=== PATIENT | male | born 1985 | race Caucasian/White ===

== ENCOUNTER 2017-04-06 08:11 | Emergency (ER) | payer MEDICAID, OTHER ==
[2017-04-06] MEDS ORDERED: NS 1,000 ML IV ONE ×2 (08:42→08:52)
[2017-04-06 08:46] LABS: % IMMATURE GRANULYOCYTES 0.4 % (0.0-1.1); ABSOLUTE IMMATURE GRANULOCYTES 0.03 10^3/uL (0.00-0.10); ADD DIFF? NO; ADD MORPH? NO; ADD SCAN? NO; ATYPICAL LYMPHOCYTE FLAG 10 (0-99); FRAGMENT RBC FLAG 0 (0-99); HEMATOCRIT 45.3 % (40.0-51.0); LEFT SHIFT FLG 0 (0-99); LIPEMIA HEMOLYSIS FLAG 80 (0-99); MEAN CELL HEMOGLOBIN CONCENTR. 33.1 g/dL (32.4-36.7); MEAN CELL VOLUME 87.6 fL (81.5-99.8); MEAN PLATELET VOLUME 10.6 fL (8.7-11.7); PLATELET CLUMPS FLAG 0 (0-99); PLATELET COUNT 240 10^3/uL (150-400); RED BLOOD CELL COUNT 5.17 10^6/uL (4.40-6.38); RED CELL DISTRIBUTION WIDTH 14.1 % (11.5-15.2)
--- NOTE | 2017-04-06 08:47 | EDPHY ---
H & P Time Seen by Provider: 04/06/17 08:46 HPI/ROS: Chief complaint. Flank pain HPI. 31-year-old male presents emergency department with left flank pain. He awoke about 530 this morning. On going to the bathroom he noticed decreased urination and hard to urinate. He had increased left flank pain after urination. The discomfort waxes and wanes and is not worse with movement or position. Seems to be somewhat better with pacing. Pain is in his left flank radiating to the left groin and left testicle. No similar symptoms previously. No fever, chest discomfort, trouble breathing. ROS Constitutional. no fever/chills, no weakness Eyes. no problems with vision ENT. no sore throat, no nasal drainage Cardiovascular. no chest pain Respiratory. no shortness of breath, no cough Abdominal. Left flank pain with nausea . Decreased urination MS. no calf pain/swelling, no neck/back pain, no joint pain Skin. no rash Lymph. no swollen glands Neuro. no headache, no dizziness, no difficulty walking or with speech Past Medical/Surgical History: Past medical history is significant for hypothyroid, depression, sleep apnea, diverticulitis Social History: , nonsmoker, no alcohol Smoking Status: Never smoked Physical Exam: General Appearance: Alert well-developed male moderate distress vital signs significant for initial blood pressure 199/107 Eyes: Pupils equal and round no pallor or injection. ENT, Mouth: Mucous membranes are moist. Respiratory: There are no retractions, lungs are clear to auscultation. Cardiovascular: Regular rate and rhythm. Gastrointestinal: Abdomen is soft and nontender, no masses, bowel sounds normal. Patient shows me tenderness in the left flank and left lower quadrant of abdomen but not tender to palpation Neurological: Awake and alert, sensory and motor exams grossly normal. Skin: Warm and dry, no rashes. Musculoskeletal: Neck is supple nontender. Extremities symmetrical, full range of motion. Psychiatric: Patient is oriented X 3, there is no agitation. Constitutional: Initial Vital Signs Temperature (C) 36.5 C 04/06/17 08:14 Heart Rate 84 04/06/17 08:14 Respiratory Rate 18 04/06/17 08:14 Blood Pressure 199/107 H 04/06/17 08:14 O2 Sat (%) 95 04/06/17 08:14 O2 Delivery Mode Room Air Allergies/Adverse Reactions: No Known Allergies Allergy (Unverified 04/06/17 08:14) Home Medications: Medication Instructions Recorded Cephalexin [Keflex (*)] 500 mg PO TID #21 cap 04/06/17 Escitalopram Oxalate 04/06/17 Levothyroxine 04/06/17 Promethazine HCl [Phenergan 25mg 25 mg PO Q4-6PRN PRN #10 tab 04/06/17 (*)] oxyCODONE/APAP 5/325 [Percocet 1 tab PO Q4-6PRN PRN #14 tab 04/06/17 5/325] Medical Decision Making - Diagnostics Imaging Results: Imaging Impressions Abdomen/Pelvis CT 04/06/17 08:52 Impression: 1. Bilateral nephrolithiasis, with [id number] left hydronephrosis secondary to a 2 mm calculus at the left ureterovesical junction. 2. Hepatic steatosis. 3. Query cryptorchid left testis. Clinical correlation is advised. 4. Grade 1 spondylolisthesis at L5-S1 with degenerative disk disease and an accompanying spondylolysis. Attention: This CT examination is specifically designed to evaluate patients who are clinically suspected of having acute obstructive uropathy. This examination does not use radiographic contrast, and as such, provides only a limited evaluation of the abdomen, pelvis, and retroperitoneum. If there is further clinical suspicion for pathological conditions other than obstructive uropathy, a complete CT evaluation of the abdomen and pelvis utilizing intravenous, oral, and rectal contrast should be considered. Findings were discussed with LANDON ARROYO MD at 9:32 am, on 04/06/2017. CT abdomen pelvis without IV contrast reviewed by me and discussed with Dr. Harrington shows a 2 mm stone at the left UVJ. Moderate proximal hydronephrosis. Questionable crypto or kid left testis as it appears to be high -riding on CT. There is also a grade 1 spondylolisthesis. Procedures: IV normal saline. Dilaudid for pain, Toradol for pain. Zofran for nausea ED Course/Re-evaluation: Re-evaluation 9:20 a.m.--pain-free. Patient and I discussed imaging study results, treatment plan including criteria for return importance of follow-up and further evaluation. We also discussed non descended testicle that should be re-evaluated by Urology. He expresses understanding and agreement Differential Diagnosis: I considered kidney stone, diverticulitis, pyelonephritis and urinary tract infection - Data Points Laboratory Results: Laboratory Results 04/06/17 08:32 04/06/17 08:32 04/06/17 04/06/17 04/06/17 08:32 08:32 08:32 WBC 8.16 10^3/uL 10^3/uL (3.80-9.50) RBC 5.17 10^6/uL 10^6/uL (4.40-6.38) Hgb 15.0 g/dL g/dL (13.7-17.5) Hct 45.3 % % (40.0-51.0) MCV 87.6 fL fL (81.5-99.8) MCH 29.0 pg pg (27.9-34.1) MCHC 33.1 g/dL g/dL (32.4-36.7) RDW 14.1 % % (11.5-15.2) Plt Count 240 10^3/uL 10^3/uL (150-400) MPV 10.6 fL fL (8.7-11.7) Neut % (Auto) 39.8 % % (39.3-74.2) Lymph % (Auto) 47.9 % H % (15.0-45.0) [place] % (Auto) 8.0 % % (4.5-13.0) Eos % (Auto) 3.3 % % (0.6-7.6) Baso % (Auto) 0.6 % % (0.3-1.7) Nucleat RBC Rel Count 0.0 % % (0.0-0.2) Absolute Neuts (auto) 3.25 10^3/uL 10^3/uL (1.70-6.50) Absolute Lymphs (auto) 3.91 10^3/uL H 10^3/uL (1.00-3.00) Absolute Monos (auto) 0.65 10^3/uL 10^3/uL (0.30-0.80) Absolute Eos (auto) 0.27 10^3/uL 10^3/uL (0.03-0.40) Absolute Basos (auto) 0.05 10^3/uL 10^3/uL (0.02-0.10) Absolute Nucleated RBC 0.00 10^3/uL 10^3/uL (0-0.01) Immature Gran % 0.4 % % (0.0-1.1) Immature Gran # 0.03 10^3/uL 10^3/uL (0.00-0.10) Sodium 140 mEq/L mEq/L (134-144) Potassium 4.2 mEq/L mEq/L (3.5-5.2) Chloride 105 mEq/L mEq/L (97-110) Carbon Dioxide 21 mEq/l L mEq/l (22-31) Anion Gap 14 mEq/L mEq/L (8-16) BUN 14 mg/dL mg/dL (7-23) Creatinine 1.0 mg/dL mg/dL (0.7-1.3) Estimated GFR > 60 Glucose 101 mg/dL H mg/dL (70-100) Calcium 10.1 mg/dL mg/dL (8.5-10.4) Total Bilirubin 0.6 mg/dL mg/dL (0.1-1.4) AST 41 IU/L IU/L (17-59) ALT 61 IU/L IU/L (21-72) Alkaline Phosphatase 81 IU/L IU/L (38-126) Total Protein 7.6 g/dL g/dL (6.3-8.2) Albumin 4.7 g/dL g/dL (3.5-5.0) Urine Color YELLOW Urine Appearance CLEAR Urine pH 5.0 (5.0-7.5) Ur Specific [place] 1.015 (1.002-1.030) Urine Protein NEGATIVE (NEGATIVE) Urine Ketones NEGATIVE (NEGATIVE) Urine Blood 1+ H (NEGATIVE) Urine Nitrate NEGATIVE (NEGATIVE) Urine Bilirubin NEGATIVE (NEGATIVE) Urine Urobilinogen NEGATIVE EU EU (0.2-1.0) Ur Leukocyte Esterase NEGATIVE (NEGATIVE) Urine RBC 5-10 /hpf H /hpf (0-3) Urine WBC 5-10 /hpf H /hpf (0-3) Ur Epithelial Cells NONE SEEN /lpf /lpf (NONE-1+) Urine Mucus TRACE /lpf /lpf (NONE-1+) Ur Culture Indicated? INDICATED H (NI) Urine Glucose NEGATIVE (NEGATIVE) Medications Given: Discontinued Medications Hydromorphone HCl (Dilaudid) 1 mg IVP EDNOW ONE Stop: 04/06/17 08:53 Last Admin: 04/06/17 09:15 Dose: 1 mg Sodium Chloride (Ns) 1,000 mls @ 0 mls/hr IV EDNOW ONE; Wide Open PRN Reason: Protocol Stop: 04/06/17 08:43 Last Admin: 04/06/17 08:43 Dose: 1,000 mls Sodium Chloride (Ns) 1,000 mls @ 0 mls/hr IV ONCE ONE; Wide Open PRN Reason: Protocol Stop: 04/06/17 08:53 Last Admin: 04/06/17 09:15 Dose: 1,000 mls Ketorolac Tromethamine (Toradol) 30 mg IVP EDNOW ONE Stop: 04/06/17 08:53 Last Admin: 04/06/17 09:20 Dose: Not Given Ketorolac Tromethamine (Toradol) 15 mg IVP EDNOW ONE Stop: 04/06/17 09:17 Last Admin: 04/06/17 09:17 Dose: 15 mg Ondansetron HCl (Zofran) 4 mg IVP EDNOW ONE Stop: 04/06/17 08:53 Last Admin: 04/06/17 09:15 Dose: 4 mg Departure - Departure Disposition: Home, Routine, Self-Care Clinical Impression: Renal colic on left side Condition: Good Instructions: Kidney Stones (ED), How to Strain Your Urine (ED) Additional Instructions: Drink plenty of fluids and stay hydrated. Strain urine and save stone for Urology. Percocet as needed for discomfort. Ibuprofen 600 mg every 6 hours for discomfort. Zofran if needed for nausea. Cephalexin as antibiotic as you have trace evidence of urinary tract infection. Return for worsening pain, fever, vomiting Follow up with Urology for further evaluation of kidney stone and possible incomplete descended left testicle Referrals: UNKNOWN,UNKNOWN [Primary Care Provider] - As per Instructions Ruth Ann Gomez MD [Medical Doctor] - As per Instructions Prescriptions: Cephalexin [Keflex (*)] 500 mg PO TID #21 cap oxyCODONE/APAP 5/325 [Percocet 5/325] 1 tab PO Q4-6PRN PRN #14 tab PRN Reason: Pain, Moderate Promethazine HCl [Phenergan 25mg (*)] 25 mg PO Q4-6PRN PRN #10 tab PRN Reason: Nausea/Vomiting, Use 1st
[2017-04-06 08:50] LABS: COLOR YELLOW; LEUKOCYTE ESTERASE,URINE NEGATIVE (NEGATIVE); NITRITE,URINE NEGATIVE (NEGATIVE)
[2017-04-06] MEDS ORDERED: ONDANSETRON 4 MG/2 ML VIAL IVP ONE (08:52)
[2017-04-06] MEDS ORDERED: HYDROmorphONE/DILAUDID 1 MG/ML SYR ONE (08:52)
[2017-04-06] MEDS ORDERED: KETOROLAC 15 MG/1 ML SDV ONE (08:52)
[2017-04-06] MEDS ORDERED: HYDROmorphONE/DILAUDID 1 MG/ML SYR IVP ONE (08:52)
[2017-04-06] MEDS ORDERED: ONDANSETRON 4 MG/2 ML VIAL ONE (08:52)
[2017-04-06] MEDS ORDERED: KETOROLAC 30 MG/1 ML SDV IVP ONE (08:52)
[2017-04-06 08:58] LABS: ALANINE AMINOTRANSFERASE 61 IU/L (21-72); ALBUMIN 4.7 g/dL (3.5-5.0); ALKALINE PHOSPHATASE 81 IU/L (38-126); ANION GAP 14 mEq/L (8-16); ASPARTATE AMINOTRANSFERASE 41 IU/L (17-59); BILIRUBIN,TOTAL 0.6 mg/dL (0.1-1.4); CALCIUM 10.1 mg/dL (8.5-10.4); CARBON DIOXIDE 21 mEq/l (22-31); CHLORIDE 105 mEq/L (97-110); GLOMERULAR FILTRATION RATE > 60; GLUCOSE 101 mg/dL (70-100); POTASSIUM 4.2 mEq/L (3.5-5.2); SODIUM 140 mEq/L (134-144); TOTAL PROTEIN 7.6 g/dL (6.3-8.2)
[2017-04-06 09:02] LABS: MUCUS TRACE /lpf (NONE-1+)
[2017-04-06] MEDS ORDERED: KETOROLAC 15 MG/1 ML SDV IVP ONE (09:16)
[2017-04-06 10:15] VITALS: BP 139/82; PULSE 80; RESP 14; TEMP 98.4; O2SAT 94
== END 2017-04-06 10:13 | disposition home or self-care (01) ==
DX: N23 Unspecified renal colic (principal)
CPT/HCPCS: 96374; J1170; J1885; J2405

== ENCOUNTER 2017-06-03 12:47 | Emergency (ER) | payer OTHER ==
[2017-06-03 12:53] VITALS: TEMP 97.7
[2017-06-03 13:13] LABS: COLOR YELLOW; LEUKOCYTE ESTERASE,URINE 1+ (NEGATIVE); NITRITE,URINE NEGATIVE (NEGATIVE)
[2017-06-03 13:18] LABS: BACTERIA TRACE /hpf (NONE SEEN); MUCUS TRACE /lpf (NONE-1+)
[2017-06-03] MEDS ORDERED: KETOROLAC 30 MG/1 ML SDV IVP ONE (13:45)
--- NOTE | 2017-06-03 14:25 | EDPHY ---
H & P Stated Complaint: L flank pain; poss kidney stone Time Seen by Provider: 06/03/17 13:26 HPI/ROS: CHIEF COMPLAINT: Left flank pain HISTORY OF PRESENT ILLNESS: The patient presents to the ED with acute left flank pain. The patient does have a history of nephrolithiasis and ureterolithiasis. The patient was seen in the emergency department 2 months ago with a similar presentation. The patient denies any fever or antecedent dysuria. The patient currently complains of 9/10 pain with radiation to left groin. The patient denies any recent illness, trauma, decreased urine output or other acute complaints. REVIEW OF SYSTEMS: A comprehensive 10 point review of systems is otherwise negative aside from elements mentioned in the history of present illness. Source: Patient Exam Limitations: No limitations - Personal History Current Tetanus Diphtheria and Acellular Pertussis (TDAP): Yes - Medical/Surgical History Hx Asthma: Yes Hx Chronic Respiratory Disease: No Hx Diabetes: No Hx Cardiac Disease: No Hx Renal Disease: No Hx Cirrhosis: No Hx Alcoholism: No Hx HIV/AIDS: No Hx Splenectomy or Spleen Trauma: No Other PMH: hypothyroid/depression/sleep apnea. kidney stone. htn (untreated) - Social History Smoking Status: Never smoked - Physical Exam Exam: General Appearance: Obese male, moderate distress secondary to pain Eyes: Pupils equal and round no pallor or injection ENT, Mouth: Mucous membranes moist Respiratory: There are no retractions, lungs are clear to auscultation Cardiovascular: Regular rate and rhythm Gastrointestinal: Left flank pain, no abdominal tenderness Neurological: A&O, normal motor function, normal sensory exam, normal cranial nerves Skin: Warm and dry, no rashes Musculoskeletal: Neck is supple nontender Extremities: symmetrical, full range of motion Constitutional: Initial Vital Signs Temperature (C) 36.5 C 06/03/17 12:49 Heart Rate 81 06/03/17 12:49 Respiratory Rate 18 06/03/17 12:49 Blood Pressure 221/120 H 06/03/17 12:49 O2 Sat (%) 94 06/03/17 12:49 O2 Delivery Mode Room Air Allergies/Adverse Reactions: No Known Allergies Allergy (Verified 06/03/17 12:48) Home Medications: Medication Instructions Recorded Escitalopram Oxalate 04/06/17 Hydrocodone/APAP 5/325 [[place] 1 - 2 each PO Q6 PRN #20 tab 06/03/17 5/325] Ondansetron Odt [Zofran Odt] 4 mg PO Q4PRN PRN #20 tab 06/03/17 Tamsulosin HCl [Flomax] 0.4 mg PO DAILY PRN #5 cap 06/03/17 Medical Decision Making ED Course/Re-evaluation: I reviewed the patient's past medical records including his prior CT scan which did demonstrate bilateral nephrolithiasis. Patient had an IV established. After normal renal function was verified the patient received IV Toradol. The patient was re-evaluated by myself several times in the ED. At 3:00 p.m. the patient reports his pain has entirely resolved. The patient is noted to have hematuria on his urinalysis. At this point time the patient presents to the ED with symptoms most consistent with recurrent renal colic. I do not feel that a repeat CT scan is indicated given his recent CT scan and known diagnosis of bilateral nephrolithiasis. The patient will be discharged home with a prescription for Zofran, Percocet and Flomax. He is instructed to use ibuprofen for pain management. He is discharged home with customary aftercare instructions. The patient is scheduled to follow up with Dr. Gomez from Urology next week. Differential Diagnosis: Differential diagnosis considered includes nephrolithiasis, ureterolithiasis, pyelonephritis, renal failure - Data Points Laboratory Results: 06/03/17 06/03/17 13:33 12:50 POC Hgb 15.3 gm/dL gm/dL (13.7-17.5) POC Hct 45 % % (40-51) POC Sodium 143 mEq/L mEq/L (134-144) POC Potassium 3.9 mEq/L mEq/L (3.3-5.0) POC Chloride 104 mEq/L mEq/L (97-110) POC BUN 10 mg/dL mg/dL (7-23) POC Creatinine 1.0 mg/dL mg/dL (0.7-1.3) POC Glucose 95 mg/dL mg/dL (70-100) Urine Color YELLOW Urine Appearance CLEAR Urine pH 5.0 (5.0-7.5) Ur Specific [place] 1.009 (1.002-1.030) Urine Protein NEGATIVE (NEGATIVE) Urine Ketones NEGATIVE (NEGATIVE) Urine Blood NEGATIVE (NEGATIVE) Urine Nitrate NEGATIVE (NEGATIVE) Urine Bilirubin NEGATIVE (NEGATIVE) Urine Urobilinogen NEGATIVE EU EU (0.2-1.0) Ur Leukocyte Esterase 1+ H (NEGATIVE) Urine RBC 3-5 /hpf H /hpf (0-3) Urine WBC 10-15 /hpf H /hpf (0-3) Ur Epithelial Cells NONE SEEN /lpf /lpf (NONE-1+) Urine Bacteria TRACE /hpf H /hpf (NONE SEEN) Urine Mucus TRACE /lpf /lpf (NONE-1+) Urine Glucose NEGATIVE (NEGATIVE) Medications Given: Discontinued Medications Ketorolac Tromethamine (Toradol) 30 mg IVP EDNOW ONE Stop: 06/03/17 13:46 Last Admin: 06/03/17 13:50 Dose: 30 mg Point of Care Test Results: 06/03/17 13:33 POC Sodium 143 POC Potassium 3.9 POC Chloride 104 POC BUN 10 POC Creatinine 1.0 POC Glucose 95 Departure - Departure Disposition: Home, Routine, Self-Care Clinical Impression: Renal colic on left side Condition: Good Instructions: Kidney Stones (ED) Additional Instructions: 1. Take Ibuprofen or Motrin 600 mg by mouth three times a day. 2. Percocet as needed for severe pain 3. Flomax as directed 4. Zofran as needed for nausea 5. Strain urine as directed 6. Return to the Emergency Department for intractable pain, fever or vomiting. 7. Followup with the urologist you have been referred to for unimproved symptoms. Referrals: Ruth Ann Gomez MD [Medical Doctor] - As per Instructions
[2017-06-03 15:41] VITALS: BP 143/85; PULSE 78; RESP 20; O2SAT 97
== END 2017-06-03 15:41 | disposition home or self-care (01) ==
DX: N23 Unspecified renal colic (principal); J45.909 Unspecified asthma, uncomplicated; I10 Essential (primary) hypertension
CPT/HCPCS: 82947-QW; 96374; J1885